=== PATIENT | female | born 1980 | race African-American/Black ===

== ENCOUNTER 2020-03-17 13:56 | Emergency (ER) | payer MEDICAID, OTHER ==
[~2020-03-17] VITALS: Ht 162.6 cm; Wt 114.0 kg
[2020-03-17] MEDS ORDERED: ACETAMINOPHEN 325MG TABLET PO ONE (14:30)
[2020-03-17 15:29] VITALS: BP 162/98
== END 2020-03-17 15:33 | disposition home or self-care (01) ==
LOC: ER 13:56
DX: J06.9 Acute upper respiratory infection, unspecified (principal); R05 Cough; I10 Essential (primary) hypertension; F12.10 Cannabis abuse, uncomplicated; Z88.6 Allergy status to analgesic agent
CPT/HCPCS: 71045; 99283

== ENCOUNTER 2021-01-03 09:47 | Emergency (ER) | payer MEDICAID, OTHER ==
[~2021-01-03] VITALS: Ht 160 cm; Wt 108.0 kg
[2021-01-03] MEDS ORDERED: ACETAMINOPHEN 325MG TABLET PO ONE (10:15)
[2021-01-03] MEDS ORDERED: ACET650T37 MT (10:19)
[2021-01-03] MEDS ORDERED: AMOX-494 MT (10:19)
[2021-01-03 10:45] VITALS: BP 148/96
== END 2021-01-03 10:46 | disposition home or self-care (01) ==
LOC: ER 10:06
DX: K02.9 Dental caries, unspecified (principal); I10 Essential (primary) hypertension; F12.10 Cannabis abuse, uncomplicated; Z88.6 Allergy status to analgesic agent
CPT/HCPCS: 99282

== ENCOUNTER 2025-06-10 11:45 | Emergency (ER) | payer MEDICAID, OTHER ==
[~2025-06-10] VITALS: Ht 160 cm; Wt 86.0 kg
[~2025-06-10 11:45] MED LIST: ACET-3163 MT; AMOX-494 MT
[2025-06-10 11:50] VITALS: O2SAT 97
[2025-06-10] MEDS: TETANUS, DIPHTHERIA, PERTUSSIS VAC/PF 0.5ML (>10YR OLD) IM ONE (13:21)
[2025-06-10] MEDS ORDERED: CIPR-263 MT (14:47)
[2025-06-10 15:13] VITALS: BP 143/87; PULSE 67; RESP 14; TEMP 36.8; O2SAT 100
== END 2025-06-10 15:24 | disposition home or self-care (01) ==
LOC: ER 11:45
DX: S60.311A Abrasion of right thumb, initial encounter (principal); H92.01 Otalgia, right ear; I10 Essential (primary) hypertension; F10.90 Alcohol use, unspecified, uncomplicated; F12.90 Cannabis use, unspecified, uncomplicated; Z23 Encounter for immunization; Z88.6 Allergy status to analgesic agent; X58.XXXA Exposure to other specified factors, initial encounter; Y93.89 Activity, other specified; Y92.89 Other specified places as the place of occurrence of the external cause; Y99.8 Other external cause status; Y90.9 Presence of alcohol in blood, level not specified
CPT/HCPCS: 90471; 90715; 99283